=== PATIENT | female | born 1990 ===

== ENCOUNTER 2019-02-08 07:07 | Outpatient (CLI) | payer OTHER ==
[2019-02-08] MEDS ORDERED: LACTATED RINGERS 1,000 ML ONE ×2 (07:44→08:21)
[2019-02-08] MEDS ORDERED: LACTATED RINGERS 500 ML IV ONE (07:59)
[2019-02-08] MEDS ORDERED: BRETHINE ONE (08:16)
[2019-02-08 08:24] LABS: Bilirubin,Urine NEG (Negative); Blood,Urine NEG (Negative); Color,Urine Yellow (Yellow); Mucus,Urine FEW /HPF; Protein,Urine <15 mg/dL mg/dL (Negative); Urobilinogen,Urine < 2.0 mg/dL (<2.0)
[2019-02-08 08:32] VITALS: BP 111/72
[2019-02-08] MEDS ORDERED: BRETHINE SUB-Q SCH (09:00)
[2019-02-08] MEDS ORDERED: DEXMEDETOMIDINE IV ONE (09:52)
[2019-02-08] MEDS ORDERED: ZOFRAN ONE (09:52)
[2019-02-08] MEDS ORDERED: TORADOL ONE (09:52)
== END 2019-02-08 09:10 | disposition home or self-care (01) ==
LOC: TRG 07:07
PROVIDERS: ATTEND Obstetrics & Gynecology
DX: O26.893 Other specified pregnancy related conditions, third trimester (principal); R10.30 Lower abdominal pain, unspecified; O62.9 Abnormality of forces of labor, unspecified; Z3A.35 35 weeks gestation of pregnancy
CPT/HCPCS: 59025; 81001; 96360; 96361; 96372; J1885; J2405; J3105; J3490; J7120

== ENCOUNTER 2019-02-13 21:03 | Inpatient (IN) | payer OTHER ==
[2019-02-13] MEDS ORDERED: LACTATED RINGERS 1,000 ML IV ONE (21:33)
[2019-02-13 22:30] LABS: Hematocrit 34.7 % (30.3-42.9); Hemoglobin 11.8 gm/dl (10.1-14.3); Mean Corpuscular HGB Conc 34 % (30-34); Mean Corpuscular Volume 93 fl (79-97); Platelet Count 226 K/mm3 (140-440); Red Blood Count 3.74 M/mm3 (3.65-5.03)
[2019-02-13 22:32] LABS: Bilirubin,Urine NEG (Negative); Blood,Urine NEG (Negative); Color,Urine Yellow (Yellow); Mucus,Urine FEW /HPF; Protein,Urine <15 mg/dL mg/dL (Negative); Urobilinogen,Urine < 2.0 mg/dL (<2.0)
[2019-02-13] MEDS ORDERED: BICITRA ORAL LIQD 30ML PO ONE ×2 (23:06→23:08)
[2019-02-13] MEDS ORDERED: METOCLOPRAMIDE 10 MG/2 ML INJ IV ONE ×2 (23:06→23:08)
[2019-02-13] MEDS ORDERED: FAMOTIDINE 20 MG/2 ML INJ IV ONE ×2 (23:06→23:08)
--- NOTE | 2019-02-13 23:08 | History and Physical Report ---
History of Present Illness Date of examination: 02/13/19 Chief complaint: Labor History of present illness: Pt is a 28yo BF EDC 03/10/19; EGA 36 4/7 weeks presents to L&D complaining of RUC's q 3-4 mins.. She received care at [facility], however records are not available and GBS is unknown. Past History Past Medical History: no pertinent history Past Surgical History: section Family/Genetic History: none Social history: no significant social history, - Obstetrical History Expected Date of Delivery: 03/10/19 Actual Gestation: 36 Week(s) 4 Day(s) : 2 Medications and Allergies Allergies Allergy/AdvReac Type Severity Reaction Status Date / Time No Known Allergies Allergy Unverified 02/08/19 07:59 Home Medications Medication Instructions Recorded Confirmed Last Taken Type Vit-Fe Fumar-FA [ 1 tab PO DAILY 02/13/19 02/13/19 02/13/19 History Vitamin] Active Meds: Active Medications Famotidine (Pepcid) 20 mg IV ONCE ONE Stop: 02/13/19 23:07 Review of Systems All systems: negative - Vital Signs Vital signs: Vital Signs Pulse BP 87 124/75 02/13/19 21:24 02/13/19 21:24 Temp Pulse Resp BP Pulse Ox 98.5 F 70 18 117/68 02/13/19 21:25 02/13/19 22:07 02/13/19 21:25 02/13/19 22:07 - Physical Exam Breasts: Positive: deferred Cardiovascular: Regular rate Lungs: Positive: Clear to auscultation Abdomen: Positive: normal appearance Genitourinary (Female): Positive: normal external genitalia Vagina: Positive: normal moisture Uterus: Positive: enlarged Extremities: Positive: normal - Obstetrical FHR: category 1 Uterine Contraction Monitor Mode: External Results Result Diagrams: 02/13/19 22:00 Abnormal lab results 02/13/19 Range/Units 22:00 RDW 13.0 L (13.2-15.2) % All other labs normal. Ultrasound: report reviewed (BPP 8/8; VERÓNICA 21.4) Assessment and Plan - Patient Problems (1) 36 weeks gestation of Onset Date: 02/14/19 Current Visit: Yes Status: Acute Plan to address problem: A: IUP @ 36 4/7 weeks in labor labor Previous C Section P: Admit to L&D for Repeat C Section Obtain records (2) Previous section complicating Onset Date: 02/14/19 Current Visit: Yes Status: Acute
--- NOTE | 2019-02-13 23:36 | Ultrasound Report ---
ULTRASOUND OBSTETRIC INDICATION / CLINICAL INFORMATION: decels. Clinical Gestational Age (GA): 36 weeks 3 days TECHNIQUE: Transabdominal. COMPARISON: None available. FINDINGS: BREATHING MOVEMENT = 2 GROSS BODY MOVEMENT = 2 TONE = 2 QUALITATIVE AMNIOTIC FLUID VOLUME = 2 TOTAL BIOPHYSICAL SCORE = 8/8 AMNIOTIC FLUID INDEX (cm) = 21.4 PRESENTATION: Cephalic. HEART RATE (beats per minute): 145 The left kidney is enlarged measuring 7.4 x 4.9 cm. The collecting system and calyces of the kidney a re dilated. IMPRESSION: biophysical profile equals 8/8 There is left hydronephrosis. Signer Name: Rajiv Mccain MD Signed: 02/13/2019 11:32 PM Workstation Name: [id number]
[2019-02-13] MEDS ORDERED: LACTATED RINGERS 1,000 ML IV SCH ×2 (23:45)
[2019-02-13] MEDS ORDERED: OXYTOCIN 20 UNIT/1000ML DRIP 20 UNITS/1,000 ML BAG IV SCH ×2 (23:45)
[2019-02-13] MEDS ORDERED: ceFAZolin/Water 2 GM/20 ML 2 GM/20 ML SYRINGE IV NR (23:45)
[2019-02-14 00:03] LABS: Hepatitis C Virus Antibody Non-Reactive (NonReactive)
--- NOTE | 2019-02-14 00:15 | Anesthesia Consultation ---
Anesthesia Consult and Med Hx Date of service: 02/14/19 - Airway Anesthetic Teeth Evaluation: Good ROM Head & Neck: Adequate Mental/Hyoid Distance: Adequate Mallampati Class: Class II Intubation Access Assessment: Probably Good - Pulmonary Exam CTA: Yes - Cardiac Exam Cardiac Exam: RRR - Pre-Operative Health Status ASA Pre-Surgery Classification: ASA2 Proposed Anesthetic Plan: Spinal - Pulmonary Hx Asthma: No - Cardiovascular System Hx Hypertension: No - Central Nervous System Hx Seizures: No Hx Psychiatric Problems: No - Endocrine Hx Renal Disease: No Hx Hypothyroidism: No Hx Hyperthyroidism: No - Hematic Hx Anemia: No Hx Sickle Cell Disease: No - Other Systems Hx Alcohol Use: No
--- NOTE | 2019-02-14 00:16 | Anesthesia Day of Surgery ---
Anesthesia Day of Surgery - Day of Surgery Patient Examined: Yes Patient H&P Reviewed: Yes Patient is NPO: Yes
[2019-02-14] MEDS ORDERED: BUPIVACAINE/PF (0.5%) 5 MG/1 ML 30 ML VIAL INFILTRATI ONE (00:29)
[2019-02-14] MEDS ORDERED: DEXMEDETOMIDINE 200 MCG/2 ML VIAL IV ONE (00:29)
[2019-02-14] MEDS ORDERED: ONDANSETRON 4 MG/2 ML INJ ONE ×2 (01:20→01:30)
[2019-02-14] MEDS ORDERED: OXYTOCIN 10 UNIT/1 ML INJ ONE (01:20)
[2019-02-14] MEDS ORDERED: KETOROLAC 30 MG/1 ML INJ ONE ×2 (01:25→01:30)
[2019-02-14] MEDS ORDERED: PHENYLEPHRINE/NS 1,000 MCG/10 ML SYRINGE (OR USE) IV ONE (01:30)
--- NOTE | 2019-02-14 01:50 | Operative Report ---
Operative Report Operative Report: Date of procedure: 02/14/2019 Pre-operative diagnosis: 1. Intrauterine at 36 4/7 weeks 2. Previ ous C Section Post-operative diagnosis: Same Procedure name(s): Repeat low transverse section Surgeon: Abdiaziz Pineda MD Ammonia Operator: None Anesthesia: Spinal anesthesia by Jett Mccann CRNA EBL: 500 mL's Findings: A 2947 gm female Apgars 6 at 1 minute and 7 at 5 minutes. Clear amniotic fluid. Normal uterus with normal tubes and ovaries bilaterally. Procedure: After the patient was prepped and draped in usual sterile fashion, and after a satisfactory level of spinal anesthesia was obtained, the skin knife was used to make a transverse skin incision through the previous skin scar. The incision was excised down to layer of the fascia, which was nicked in the midline and extended laterally using the Bovie cautery. The rectus muscles were dissected off the rectus fascia both superiorly and inferiorly. The rectus bellies in the midline, and the peritoneum was entered under direct visualization. The peritoneal incision was extended superiorly and inferiorly. The uterus was scored in a curvilinear linear fashion, entered in the midline revealing clear amniotic fluid. The infant's head was delivered onto the surgical field, and the oropharynx and nasopharynx were bulb suctioned. The rest of the 's body was delivered, cord was doubly clamped and cut and the was handed to the waiting respiratory team. Cord blood was then ob tained. The placenta was manually removed from the uterus and the uterus removed from its normal anatomical position. After gentle uterine lavage, the incision was inspected and found to be without extensions. It was then closed in 2 layers using 0 Vicryl suture in a running interlocking fashion, the second layer imbricating the first. After good hemostasis was achieved, copious amounts or irrigation was performed, and the gutters were suctioned free of blood and blood clots. The Tisseal sealant was sprayed across the uterine incision and excellent hemostasis was assured. The uterus was then returned to its normal anatomical position, and after excellent hemostasis assured, the peritoneum was re-approximated using 3-0 Vicryl suture in a running interlocking fashion, and then the rectus muscles were re-approximated using 3-0 Vicryl suture in a [id number] configuration. The fascia was then re-approximated using 0 Vicryl suture in running interlocking fashion. The subcutaneous layer was made hemostatic using Bovie cautery and re-approximated using 3-0 vicyl suture, then the skin edges re-approximated using 4-0 Vicryl suture in a sub- cuticular fashion. Patient tolerated the procedure well was transported to recovery in stable condition.
[2019-02-14] MEDS ORDERED: WITCH HAZEL/ GLYCERIN PAD TP PRN (01:53)
[2019-02-14] MEDS ORDERED: LANOLIN/ZINC/DIMETHICONE (LANSINOH) 7 GM TP PRN (01:53)
[2019-02-14] MEDS ORDERED: ACETAMINOPHEN 325 MG TAB PO PRN (01:53)
[2019-02-14] MEDS ORDERED: ONDANSETRON 4 MG/2 ML INJ IV PRN ×2 (01:53→02:08)
[2019-02-14] MEDS ORDERED: MAGNESIUM HYDROXIDE (MOM) ORAL LIQD UDC PO PRN (01:53)
[2019-02-14] MEDS ORDERED: KETOROLAC 30 MG/1 ML INJ IV PRN (01:53)
[2019-02-14] MEDS ORDERED: SENNOSIDES 8.6 MG TAB PO PRN (01:53)
[2019-02-14] MEDS ORDERED: PROMETHAZINE 25 MG RECT SUPP PR PRN ×2 (01:53→02:08)
[2019-02-14] MEDS ORDERED: SIMETHICONE 80 MG CHEW TAB PO PRN (01:53)
[2019-02-14] MEDS ORDERED: NALOXONE 0.4 MG/1 ML INJ IV PRN ×2 (01:53→02:08)
[2019-02-14] MEDS ORDERED: oxyCODONE /ACETAMINOPHEN 5-325MG TAB PO PRN (01:53)
[2019-02-14] MEDS ORDERED: D5W/LACTATED RINGERS 1,000 ML IV SCH (02:00)
[2019-02-14] MEDS ORDERED: OXYTOCIN 20 UNIT/1000ML DRIP 20 UNITS/1,000 ML BAG IV SCH (02:00)
[2019-02-14] MEDS ORDERED: PROMETHAZINE 25 MG TAB PO PRN (02:08)
[2019-02-14] MEDS ORDERED: NalbUPHINE 10 MG/1 ML INJ IV PRN (02:08)
--- NOTE | 2019-02-14 02:08 | Post Anesthesia Evaluation ---
- Post Anesthesia Evaluation Patient Participated: Yes Airway Patent: Yes Stable Respiratory Function: Yes Nausea/Vomiting: No Temp > 96.8F: Yes Pain Manageable: Yes Adequeate Hydration: Yes Anesthesia Complications: No Block Receding Appropriately: Yes
[2019-02-14] MEDS ORDERED: IBUPROFEN 800 MG TAB PO SCH (03:00)
[2019-02-14] MEDS ORDERED: ACETAMINOPHEN 325 MG TAB PO SCH (03:00)
[2019-02-14] MEDS ORDERED: SODIUM CHLORIDE 0.9% 500 ML 500 ML IV ONE (05:39)
[2019-02-14] MEDS: ceFAZolin/NS 1 GM/50 ML 1 GM/50 ML BAG IV SCH ×2 (09:30→18:32)
[2019-02-14] MEDS: FERROUS SULFATE 325 MG TAB PO SCH ×2 (09:31→22:21)
[2019-02-14] MEDS: PRENATAL VIT27-FE FUMARATE-FOLIC ACID VIT TAB PO SCH (09:32)
[2019-02-14] MEDS: HYDROcodone/ACETAMINOPHEN 5-325 MG TAB PO PRN (09:32)
[2019-02-14 14:33] LABS: Hematocrit 34.3 % (30.3-42.9); Hemoglobin 11.5 gm/dl (10.1-14.3)
[2019-02-15] MEDS: IBUPROFEN 800 MG TAB PO PRN ×3 (00:35→21:44)
[2019-02-15] MEDS ORDERED: TETANUS,DIPH,PERTUSS(ACELL) VACCINE 0.5 ML SYRINGE IM ONE (06:00)
[2019-02-15] MEDS ORDERED: MEASLES, MUMPS & RUBELLA 12,500 UNIT/0.5 ML VACCINE SUB-Q ONE (06:00)
[2019-02-15] MEDS: PRENATAL VIT27-FE FUMARATE-FOLIC ACID VIT TAB PO SCH (10:30)
[2019-02-15] MEDS: FERROUS SULFATE 325 MG TAB PO SCH ×2 (10:30→21:44)
--- NOTE | 2019-02-15 12:20 | Progress Note ---
Assessment and Plan - Patient Problems (1) 36 weeks gestation of Onset Date: 02/14/19 Current Visit: Yes Status: Resolved (2) Previous section complicating Onset Date: 02/14/19 Current Visit: Yes Status: Resolved (3) Status post Onset Date: 02/15/19 Current Visit: Yes Status: Resolved Plan to address problem: A: S/P Repeat C Section - POD #1 Doing well Asymptomatic anemia - stable P: Continue RPOC May go home tomorrow. Subjective - Subjective Date of service: 02/15/19 Principal diagnosis: s/p C Section - POD #1 Interval history: Pt is feeling well without complaints. Bleeding improved. She is tolerating a reg diet without nausea or vomiting, ambulating and voiding without difficulty. Patient reports: appetite normal, voiding normally, pain well controlled, flatus, ambulating normally, no dizzy ambulation, no nauseated : doing well, in NICU Objective - Vital Signs Latest vital signs: Vital Signs Temp Pulse Resp BP BP Pulse Ox 02/15/19 08:00 98.6 F 84 20 100/65 02/15/19 01:36 97.9 F 78 18 98/61 99 02/14/19 21:17 98.0 F 67 18 91/61 98 02/14/19 16:35 98.6 F 106 H 18 103/65 02/14/19 12:30 97.5 F L 59 L 18 93/56 Intake and Output 02/14/19 02/15/19 02/15/19 22:59 06:59 14:59 Intake Total 480 120 Output Total 600 Balance -120 120 Intake: Oral 480 120 Output: Urine 600 Void 600 Other: Total, Intake Amount 120 120 Total, Output Amount 600 # Voids Void 1 - Exam Breasts: Present: deferred Abdomen: Present: normal appearance, soft Uterus: Present: normal, firm, fundal height below umbilicus Extremities: Present: normal Incision: Present: normal, dry, intact - Labs Labs: Laboratory Tests 02/13/19 02/13/19 02/13/19 22:00 22:00 22:00 WBC 8.2 RBC 3.74 Hgb 11.8 Hct 34.7 MCV 93 MCH 32 MCHC 34 RDW 13.0 L Plt Count 226 Urine Color Yellow Urine Turbidity Clear Urine pH 6.0 Ur Specific [place] 1.017 Urine Protein <15 mg/dl Urine Glucose (UA) Neg Urine Ketones Neg Urine Blood Neg Urine Nitrite Neg Urine Bilirubin Neg Urine Urobilinogen < 2.0 Ur Leukocyte Esterase Neg Urine WBC (Auto) 1.0 Urine RBC (Auto) 2.0 U Epithel Cells (Auto) 3.0 Urine Mucus Few RPR Hep Bs Antigen Hepatitis C Antibody Rubella IgG Antibody Blood Type O NEGATIVE Antibody Screen Negative Screen 02/13/19 02/13/19 02/13/19 22:00 22:00 22:00 WBC RBC Hgb Hct MCV MCH MCHC RDW Plt Count Urine Color Urine Turbidity Urine pH Ur Specific [place] Urine Protein Urine Glucose (UA) Urine Ketones Urine Blood Urine Nitrite Urine Bilirubin Urine Urobilinogen Ur Leukocyte Esterase Urine WBC (Auto) Urine RBC (Auto) U Epithel Cells (Auto) Urine Mucus RPR Nonreactive Hep Bs Antigen Non-reactive Hepatitis C Antibody Non-reactive Rubella IgG Antibody Immune Blood Type Antibody Screen Screen 02/14/19 02/14/19 02/14/19 09:02 14:10 19:32 WBC RBC Hgb 11.5 Hct 34.3 MCV MCH MCHC RDW Plt Count Urine Color Urine Turbidity Urine pH Ur Specific [place] Urine Protein Urine Glucose (UA) Urine Ketones Urine Blood Urine Nitrite Urine Bilirubin Urine Urobilinogen Ur Leukocyte Esterase Urine WBC (Auto) Urine RBC (Auto) U Epithel Cells (Auto) Urine Mucus RPR Hep Bs Antigen Hepatitis C Antibody Rubella IgG Antibody Blood Type O NEGATIVE O POSITIVE Antibody Screen Negative Screen Negative
--- NOTE | 2019-02-15 14:43 | Discharge Summary ---
Providers - Providers Date of Admission: 02/13/19 23:30 Date of discharge: 02/16/19 Attending physician: OBDULIO DUNN Primary care physician: OBDULIO DUNN Hospitalization Reason for admission: IUP - , section, labor Delivery: Procedure: section, repeat low transverse Episiotomy: none Laceration: none Incision: normal, dry, intact Other procedures: none complications: none Discharge diagnosis: delivery [place] baby: female Hospital course: Pt is a 28yo BF EDC 03/10/19; EGA 36 4/7 weeks who presented to L&D complaining of RUC's q 3-4 mins.. She received care at [facility], and course significant for a previous C Section. She was in labor and therefore delivered by an uncomplicated Repeat C Section. By POD #1 she was tolerating a reg diet without nausea or vomiting, ambulating and voiding without difficulty. She was therefore discharged to home on POD #2 in stable condition. Condition at discharge: Good Disposition: DC-[id number] TO HOME OR SELFCARE - Discharge Diagnoses (1) 36 weeks gestation of Status: Resolved (2) Previous section complicating Status: Resolved (3) Status post Status: Resolved Plan - Discharge Medications Prescriptions: Ferrous Sulfate [Feosol 325 MG tab] 325 mg PO BID #60 tablet Ibuprofen [Motrin 800 MG tab] 800 mg PO Q6H PRN #30 tablet PRN Reason: Pain, Mild (1-3) HYDROcodone/APAP 5-325 [Warren 5-325 mg TAB] 1 each PO Q6HR PRN #30 tablet PRN Reason: Pain, Moderate (4-6) Vit-Fe Fumar-FA [ Vitamin] 1 each PO QDAY #30 tablet - Provider Discharge Summary Activity: routine, no sex for 6 weeks, no heavy lifting 4 weeks, no strenuous exercise Diet: routine Instructions: routine Additional instructions: [] Smoking cessation referral if applicable(refer to patient education folder for contact #) [] Refer to [facility] Booklet Call your doctor immediately for: * Fever > 100.5 * Heavy vaginal bleeding ( >1 pad per hour) * Severe persistent headache * Shortness of breath * Reddened, hot, painful area to leg or breast * Drainage or odor from incision. * Keep incision clean and dry at all times and follow doctor's instructions regarding bathing/showering - Follow up plan Follow up: OBDULIO DUNN MD [Primary Care Provider] - 14 Days JOHN HE NP [Referring] - 14 Days
[2019-02-15] MEDS: HYDROcodone/ACETAMINOPHEN 5-325 MG TAB PO PRN (18:03)
[2019-02-16] MEDS: HYDROcodone/ACETAMINOPHEN 5-325 MG TAB PO PRN ×2 (05:22→10:38)
[2019-02-16 09:58] VITALS: BP 97/60
[2019-02-16] MEDS: FERROUS SULFATE 325 MG TAB PO SCH (10:36)
[2019-02-16] MEDS: PRENATAL VIT27-FE FUMARATE-FOLIC ACID VIT TAB PO SCH (10:37)
[2019-02-16] MEDS: IBUPROFEN 800 MG TAB PO PRN (10:38)
[2019-02-21 12:12] LABS: HIV-1 Antibody Differentiation SEE SCANNED RESULT; HIV-2 Antibody Differentiation SEE SCANNED RESULT
== END 2019-02-16 11:15 | disposition home or self-care (01) | DRG 786 ==
LOC: TRG 21:03 → APU 23:30 → UNDOADMIN 23:30 → APU 02-14 01:53 → OB 02-14 04:16 → APU 02-14 04:16 → UNDODISIN 02-16 11:15
PROVIDERS: ADMIT Obstetrics & Gynecology; ATTEND Obstetrics & Gynecology
PROC: 10D00Z1 Extraction of Products of Conception, Low, Open Approach (ICD-10-PCS; principal; 2019-02-14)
DX: O34.211 Maternal care for low transverse scar from previous cesarean delivery (principal); O60.14X0 Preterm labor third trimester with preterm delivery third trimester, not applicable or unspecified; O90.81 Anemia of the puerperium; D64.9 Anemia, unspecified; Z3A.36 36 weeks gestation of pregnancy; Z37.0 Single live birth
CPT/HCPCS: 36415; 76815; 76819; 81001; 85014; 85018; 85027; 85461; 86592; 86689; 86706; 86762; 86803; 86850; 86900; 86901; 87806; 88307; G0378; J0690; J1885; J2370; J2405; J2590; J2765; J3490; J7040; J7120